=== PATIENT | female | born 1945 | race Caucasian/White ===

== ENCOUNTER 2024-11-20 12:38 | Outpatient (OUT) | payer OTHER, SELFPAY ==
--- NOTE | 2024-11-20 12:49 | MR_ITS ---
[place] [id number] Patient Name: BRIGHT BENITEZ MRN: [id number] date: 1945 Sex: F Assigned Patient Location: MRI Current Patient Location: MRI Accession/Order Number: [id number] Exam Date: 11/20/2024 17:54 Report Date: 11/20/2024 18:01 At the request of: ELODIA BRUNSON MD Procedure: MR knee LT wo con MR knee LT wo con 11/20/2024 2:00 PM SIGNS AND SYMPTOMS: Acute left knee pain PROTOCOL: Multiplanar multisequence MR images of the left knee without IV contrast COMPARISON: None. FINDINGS: Fluid: There is a moderate joint effusion. There is a Melendez's cyst measuring 2.6 x 2.3 x 5.7 cm in greatest dimension.. Medial compartment: Medial meniscus: There is a horizontally oriented tear of the posterior horn through anterior horn of the medial meniscus. No displaced fragments. The meniscus is partially extruded from the joint space. Medial collateral ligament: Intact. Medial femoral condyle cartilage: There is partial thickness chondromalacia. Medial tibial plateau cartilage: There is partial thickness chondromalacia. Lateral compartment: Lateral meniscus: Intact. Lateral collateral ligament: Intact. Lateral femoral condyle cartilage: There is partial thickness chondromalacia. Lateral tibial plateau cartilage: There is partial thickness chondromalacia. Posterolateral corner: Popliteus tendon: Intact. Popliteofibular ligament: Intact. Proximal tibiofibular joint: Preserved. Anterior compartment: Alignment: Normal. Quadriceps tendon: Intact. Patellar tendon: Intact. Retinaculum: Medial intact. Lateral intact. Patellar cartilage: There is full thickness chondromalacia along the lateral articular facet with subchondral edema.. Trochlea: There is full thickness chondromalacia with subchondral edema. . Plica: None. Hoffa fat pad: Normal. Intercondylar compartment: Anterior cruciate ligament: Intact. Posterior cruciate ligament: Intact. Bones (other than subarticular marrow): Normal. Muscles: Normal. Vessels: Normal. Nerves: Normal. MR/MR knee LT wo con IMPRESSION: There is a horizontally oriented tear of the posterior horn through anterior horn of the medial meniscus. No displaced fragments. The meniscus is partially extruded from the joint space. There is partial thickness chondromalacia along the weightbearing joint spaces. There is full thickness chondromalacia greatest along the lateral articular facet of the patella. There is accompanying subchondral edema. There is a horizontally oriented tear of the posterior horn through anterior horn of the medial meniscus. No displaced fragments. The meniscus is partially extruded from the joint space. Impression dictated by: Dereck Rhodes M.D. 11/20/2024 6:01 PM Dictation Location: [place] [address] Electronically authenticated by: [id number] Y Date: 11/20/2024 18:01
== END 2024-11-20 12:39 | disposition home or self-care (01) ==
PROVIDERS: PCP Family Medicine; Visit Provider Orthopaedic Surgery
DX: S83.8X2A Sprain of other specified parts of left knee, initial encounter (principal); S83.242A Other tear of medial meniscus, current injury, left knee, initial encounter; M94.262 Chondromalacia, left knee
CPT/HCPCS: 73721

== ENCOUNTER 2025-02-03 07:52 | Outpatient (OUT) | payer OTHER, SELFPAY ==
--- OUTSIDE RECORDS SUMMARY | 2025-01-21 13:45 | XMS_ITS | Encounter Summary ---
Author Organization [facility] Sys tem Address [id number] [address] [place] [address] Care Team Providers Care Bus Assistant Name Role Phone MarceloBraydon clancy Primary Care Provider + [phone] Reason for Visit * Reason Comments pessary maintenance Patient presents for pessary maintenance. Encounter Details Date Type Department Care Team (Late st Contact Info) Description 01/21/2025 1:45 PM EDT Office Visit [facility] [address] [place] [address] Essence Nunez MD [address] [facility] [place] [address] Female bladder prolapse (Primary Dx); Vaginal odor Social History Tobacco Use Types Packs/Day Years Used Date Smoking Tobacco: Never Smokeless Tobacco: Never Alcohol Use Standard Drinks/Week Comments No 0 (1 standard drink = 0.6 oz pur e alcohol) [facility] Utilities Answer Date Recorded In the past 12 months has [employer], gas, oil, or water [employer] threatened to shut off services in your home? No 05/09/2023 Social Connection and Isolat ion Panel [NHANES] Answer Date Recorded In a typical week, how many times do you talk on the phone with family, friends, or neighbors? Twice a week 08/18/2022 How often do you get togethe r with friends or relatives? More than three times a week 08/18/2022 How often do you attend chur ch or scientologist services? More than 4 times per year 08/18/2022 Do you belong to any clubs o r organizations such as scientology groups, unions, fraternal or athletic groups, or school groups? Yes 08/18/2022 How often do you attend meet ings of the clubs or organizations you belong to? 1 to 4 times per year 08/18/2022 Are you , , di vorced, , never , or living with a partner? 08/18/2022 AUDIT-C Answer Date Recorded Q1: How often do you have a drink containing alcohol? Never 08/18/2022 Q2: How many drinks containi ng alcohol do you have on a typical day when you are drinking? Patient does not drink Q3: How often do you have si x or more drinks on one occasion? Never 08/18/2022 Overall Financial Resource Strain (CARDIA) Answe r Date Recorded How hard is it for you to pa y for the very basics like food, housing, medical care, and heating? Not hard at all 08/18/2022 PHQ-2 Answer Date Recorded Total Score 0 10/04/2024 [facility] - Occupational Stress Questionnaire Answer Date Recorded Do you feel stress - tense, restless, nervous, or anxious, or unable to sleep at night because your mind is troubled all the time - these days? Not at all 08/18/2022 Exercise Vital Sign Answer Date Recorde d On average, how many days pe r week do you engage in moderate to strenuous exercise (like a brisk walk)? 4 days 09/21/2023 On average, how many minutes do you engage in exercise at this level? 60 min 09/21/2023 PRAPARE - Transportation Answer Date Re corded In the past 12 months, has l ack of transportation kept you from medical appointments or from getting medications? No 01/06 In the past 12 months, has l ack of transportation kept you from meetings, work, or from getting things needed for daily living? No 01/19/2022 Housing Instability Answer Date Recorde d Are you worried or concerned that in the next two months you may not have stable housing that you own, rent or stay in as a part of a household? No 09/21/2023 Childcare Answer Date Recorded Do problems getting child ca re make it difficult for you to work or study? No 08/18/2022 Employment Answer Date Recorded Do you need help finding a [facility] career center and/or a training program? No 08/18/2022 Hunger Screening Answer Date Recorded Within the past 12 months we worried whether our food would run out before we got money to buy more. Never True 01/21/2025 Within the past 12 months th e food we bought just didn't last and we didn't have money to get more. Never True 01/21/2025 Purpose - Life Answer Date Recorded I have a purpose and direction in my life. Stron gly Agree 08/18/2022 Comments No Sex and Gender Information Value Date Recorded Sex Assigned at Not on file Legal Sex Female 11:22 AM EDT Gender Identity Not on file Sexual Orientation Not on file documented as of this encounter Last Filed Vital Signs Vital Sign Reading Time Taken Comments Blood Pressure 122/68 01/21/2025 1:45 PM EDT Pulse - - Temperature - - Respiratory Rate - - Oxygen Saturation - - Inhaled Oxygen Concentration - - Weight 85.4 kg (188 lb 3.2 oz) 01/21/2025 1:45 P M EDT Height 165.1 cm (5' 5 ) 01/21/2025 1:45 PM EDT Body Mass Index 31.32 01/21/2025 1:45 PM EDT documented in this encounter Progress Notes * Essence Nunez MD - 01/21/2025 1:45 PM EDT Luma Valderrama is a 79 y.o.female who presents for pessary maintenance. Vaginal odor for the last 2 weeks. No discharge. Does not need medication refills. OB History 4 Para 3 Term 3 AB 1 Living 3 SAB 1 IAB Ectopic Multiple Live Births 3 FAMILY HX Family History Problem Relation Age of Onset No Known Problems Paternal Grandfather No Known Problems Paternal Grandmother No Known Problems Maternal Grandmother No Known Problems Maternal Grandfather Cancer Father prostate No Known Problems Mother Breast cancer Sister 71 No Known Problems Daughter No Known Problems Maternal Aunt No Known Problems Paternal Aunt No Known Problems Cousin BRCA 1/2 Neg Hx Endometrial cancer Neg Hx Ovarian cancer Neg Hx [place] Breast Cancer Neg Hx Colon cancer Neg Hx Uterine cancer Neg Hx Review of Systems A comprehensive review of systems was negative. Physical Exam BP 122/68 Ht 165.1 cm (5' 5 ) Wt 85.4 kg (188 lb 3.2 oz) BMI 31.32 kg/m?? General: alert and oriented x 3 Vulva: External genitalia within normal limits. No HPV, no lesions, no obvious dysplastic changes Vagina: Well supported, no discharge, no lesions Cervix: absent Uterus: absent Adnexa: no mass, fullness, tenderness and removed #3 Doughnut pessary removed, cleaned, inspected and replaced. Patient tolerated procedure. Assessment 1. Female bladder prolapse Plan No orders of the defined types were placed in this encounter. Return to office in 3-6 months for routine maintenance. Continue with Estrace and trimo-russo cream. Culture collected today. Small spotting or bleeding can be expected after pessary replacement. Use Lidocaine cream prior to coming in for maintenance. MD Brigitte LIN 01/21/25 1417 Brigitte Jeffery 01/21/25 1418 documented in this encounter Plan of Treatment Upcoming Encounters Date Type Department Care Team (Late st Contact Info) Description 05/19/2025 2:00 PM EST Office Visit [facility] [address] [place] [address] Essence Nunez MD [address] [place] [place] [address] 10/02/2025 4:00 PM EDT Office Visit [facility] Internal Medicine - Family Medicine [address] [place] [address] documented as of this encounter Goals Goal Patient Goal Type Associated Problems Recent Progress Patient-Stated? Author home with [facility] General Yes Diana Pena LSW Note: Evaluation of progress towards goal: Safe dc return home with otpt therapy documented as of this encounter Results * (ABNORMAL) Unlisted Lab Test (01/21/2025) Swab Vaginal structure / Unknown 01/21/2025 us Essence Nunez MD LAB BLOOD ORDERABLES Final Res ult MANUALLY TRANSCRIBED RESULTS documented in this encounter Visit Diagnoses Diagnosis Female bladder prolapse- Primary Vaginal odor Unspecified symptom associated with female genital organs documented in this encounter Additional Health Concerns Assessment Noted Time PHQ-9 Depression Total Score: 0 10/05/19 25 11:21 AM EDT A Body Mass Index follow-up plan has been documented for the patient 06/27/2016 8:46 PM EST documented as of this encounter Care Teams Bus Assistant Relationship Specialty Start Date End Date Braydon Mendoza DO [address] [facility], [facility] [place] [address] PCP - General Family Medicine 06/09/17 documented as of this encounter
--- OUTSIDE RECORDS SUMMARY | 2025-02-03 07:55 | XMS_ITS | Encounter Summary ---
Author Organization [facility] Address [id number] [address] [place] [address] Care Team Providers Care Equipment Associate Name Role Phone MarceloBraydon clancy Primary Care Provider + [phone] Encounter Details Date Type Department Care Team (Late st Contact Info) Description 01/23/2025 Orders Only [facility] [place] [address] [place] [address] Yamileth Davis, INSTRUMENT REPAIR SUPERVISOR-FACILITIES CLERK [address] [place] [address] BV (bacterial vaginosis) (Primary Dx) Social History Tobacco Use Types Packs/Day Years Used Date Smoking Tobacco: Never Smokeless Tobacco: Never Alcohol Use Standard Drinks/Week Comments No 0 (1 standard drink = 0.6 oz pur e alcohol) [facility] Utilities Answer Date Recorded In the past 12 months has [employer], gas, oil, or water [employer] threatened to shut off services in your [...] 08/18/2022 How often do you attend chur or caodaism services? More than 4 times per year 08/18/2022 Do you belong to any clubs o r organizations such as taoism groups, unions, fraternal or athletic groups, or [...] Answer Date Recorded Total Score 0 10/04/2024 [employer] of Occupat ional [facility] - Occupational Stress Questionnaire Answer Date Recorded [...] Recorded Do you need help finding a [facility] career center and/or a training program? [...] on file documented as of this encounter Plan of Treatment Upcoming Encounters Date Type Department Care Team (Late st Contact Info) Description 05/19/2025 2:00 PM EST Office Visit [facility]ne[facility] [address] [place] [address] Essence Nunez MD [address] [place] [address] 10/02/2025 4:00 PM EDT Office Visit [facility] Internal Medicine - Family Medicine [address] [place] [phone] documented as of this encounter Goals Goal Patient Goal Type Associated Problems Recent Progress Patient-Stated? Author home with [facility] General Yes Diana Pena LSW Note: Evaluation of progress towards goal: Safe dc return home with otpt therapy documented as of this encounter Visit Diagnoses Diagnosis BV (bacterial vaginosis)- Primary Unspecified vaginitis and vulvovaginitis documented in this encounter Additional Health Concerns Assessment Noted Time PHQ-9 Depression Total Score: 0 10/05/19 25 11:21 AM EDT A Body Mass Index follow-up plan has been documented for the patient 06/27/2016 8:46 PM EST documented as of this encounter Care Teams Equipment Associate Relationship Specialty Start Date End Date Braydon Mendoza DO [address] [place], [facility] [place] [address] PCP - General Family Medicine 06/09/17 documented as of this encounter
--- OUTSIDE RECORDS SUMMARY | 2025-02-03 07:55 | XMS_ITS | Encounter Summary ---
Author Organization [facility] Address [id number] [address] [place] [address] Care Team Providers Care Instruction Librarian Name Role Phone MarceloBraydon clancy Primary Care Provider + [phone] Encounter Details Date Type Department Care Team (Late st Contact Info) Description 03/18/2022 [facility] [address] [place] [phone] Mariela Agosto CMA Social History Tobacco Use Types Packs/Day Years Used Date Smoking Tobacco: Never Smokeless Tobacco: Never Alcohol Use Standard Drinks/Week Comments No 0 (1 standard drink = 0.6 oz pur e alcohol) PRAPARE - Transportation Answer Date Re corded In the past 12 months, has l ack of transportation kept you from medical appointments or from getting medications? No 01/06 In the past 12 months, has l ack of transportation kept you from meetings, work, or from getting things needed for daily living? No 01/19/2022 Childcare Answer Date Recorded Childcare Unknown 10/17/2018 Employment Answer Date Recorded Employment Unknown 10/17/2018 Purpose - Life Answer Date Recorded Purpose and direction in life Unknown Comments No Sex and Gender Information Value Date Recorded Sex Assigned at Not on file Legal Sex Female 11:22 AM EDT Gender Identity Not on file Sexual Orientation Not on file COVID-19 Exposure Response Date Recorded In the last month, have you been in contact with someone who was confirmed or suspected to have Coronavirus / COVID-19? No / Unsure 03/08/2022 9:43 AM EDT documented as of this encounter Miscellaneous Notes * Telephone Encounter - Mariela Agosto CMA - 03/18/2022 10:47 AM EST ----- Message from MAN Gonzales sent at 03/14/2022 7:58 AM EST ----- Regarding: medication for cholesterol I spoke with Dr Mendoza, he didn't believe you would qualify for the medication for cholesterol we spoke about but did think you might for another that is injected (we would teach you) every two weeks, called [facility], if you are agreeable, I will get that process started * Telephone Encounter - Mariela Agosto CMA - 03/18/2022 10:47 AM EST Left a message again for the patient to call us back * Telephone Encounter - Mariela Agosto CMA - 03/18/2022 10:47 AM EST Spoke with the patient and she said that she does not want to do the shots. She got a list of foodsthat bring down your lipids and she wants to try that first. documented in this encounter Plan of Treatment Upcoming Encounters Date Type Department Care Team (Late st Contact Info) Description 05/19/2025 2:00 PM EST Office Visit [facility] [address] [place] [address] Essence Nunez MD [address] [place], [place] [id number] 10/02/2025 4:00 PM EDT Office Visit [facility] Internal Medicine - Family Medicine [address] [place] [address] documented as of this encounter Goals Goal Patient Goal Type Associated Problems Recent Progress Patient-Stated? Author home with [facility] General Yes Diana Pena LSW Note: Evaluation of progress towards goal: Safe dc return home with otpt therapy documented as of this encounter Visit Diagnoses Not on filedocumented in this encounter Additional Health Concerns Assessment Noted Time A Body Mass Index follow-up plan has been documented for the patient 06/27/2016 8:46 PM EST documented as of this encounter Care Teams Instruction Librarian Relationship Specialty Start Date End Date Braydon Mendoza DO [address] [facility] [place] [address] PCP - General Family Medicine 06/09/17 documented as of this encounter
--- OUTSIDE RECORDS SUMMARY | 2025-02-03 07:55 | XMS_ITS | Encounter Summary ---
Author Organization [employer] [facility] tem Address [id number] [address] [place] [address] Care Team Providers Care Administrative Personal Assistant Name Role Phone JavierBraydon ruiz Francisco CASTRO Primary Care Provider + [phone] Encounter Details Date Type Department Care Team (Late st Contact Info) Description 01/15/2025 [facility]phone [facility] [address] [place] [phone] Mary Nguyen CMA Social History Tobacco Use Types Packs/Day Years Used Date Smoking Tobacco: Never Smokeless Tobacco: Never Alcohol Use Standard Drinks/Week Comments No 0 (1 standard drink = 0.6 oz pur e alcohol) [facility] Utilities Answer Date Recorded In the past 12 months has [employer], gas, oil, or water company threatened to shut off services in your [...] often do you attend chur ch or holiness services? More than 4 times per year 08/18/2022 Do you belong to any clubs o r organizations such as yazdanism groups, unions, fraternal or athletic groups, or [...] Answer Date Recorded Total Score 0 10/04/2024 [facility] [place] of Occupat ional Health - Occupational Stress [...] Recorded Do you need help finding a l ocal career center and/or a training program? No 08/18/2022 Hunger Screening Answer Date Recorded Within the past 12 months we worried whether our food would run out before we got money to buy more. Never True 10/26/2024 Within the past 12 months th e food we bought just didn't last and we didn't have money to get more. Never True 10/26/2024 Purpose - Life Answer Date Recorded I have a purpose and direction in my life. Rachealn gly Agree 08/18/2022 Comments No Sex and Gender Information Value Date Recorded Sex Assigned at Not on file Legal Sex Female 11:22 AM EDT Gender Identity Not on file Sexual Orientation Not on file documented as of this encounter Miscellaneous Notes * Telephone Encounter - Mary Nguyen CMA - 01/15/2025 3:50 PM EDT I spoke with pt and she stated she is having sharp, shooting pains in her back that are radiating throughout her upper body, so I recommended her to go to the ER if it persisted. I told her Dr. Mendoza is booking out until the end of February. She stated she is going to check with her insurance to see what it will cost for an ER visit. documented in this encounter Plan of Treatment Upcoming Encounters Date Type Department Care Team (Late st Contact Info) Description 05/19/2025 2:00 PM EST Office Visit [facility]ne[facility] [address] [place] [phone] Essence Nunez MD [address] [place] [address] 10/02/2025 4:00 PM EDT Office Visit [facility] Internal Medicine - Family Medicine [address] [place] [phone] documented as of this encounter Goals Goal [...] documented as of this encounter Care Teams Administrative Personal Assistant Relationship Specialty Start Date End Date Braydon Mendoza DO [address] [facility], [place] [address] PCP - General Family Medicine 06/09/17 documented as of this encounter
--- OUTSIDE RECORDS SUMMARY | 2025-02-03 07:55 | XMS_ITS | Encounter Summary ---
Author Organization [facility] Address [id number] [address] [place] [address] Care Team Providers Care Developmental Training Counselor Name Role Phone JavierBraydon ruiz Francisco CASTRO Primary Care Provider + [phone] Encounter Details Date Type Department Care Team (Late st Contact Info) Description 10/29/2023 Orders Only [facility] Internal Medicine - Family Medicine [address] [place] [address] Claudio Rhodes DO [address] [place] [address] History of colonic polyps (Primary Dx) Social History Tobacco Use Types Packs/Day Years Used Date Smoking Tobacco: Never Smokeless Tobacco: Never Alcohol Use Standard Drinks/Week Comments No 0 (1 standard drink = 0.6 oz pur e alcohol) [facility] Utilities Answer Date Recorded In the past 12 months has [employer], gas, oil, or water company threatened to [...] often do you attend chur ch or church services? More than 4 times per year 08/18/2022 Do you belong to any clubs o r organizations such as buddhism groups, unions, fraternal or athletic groups, or [...] PHQ-2 Answer Date Recorded Total Score 0 09/21/2023 [facility] of Occupat ional Health - Occupational Stress [...] Recorded Do you need help finding a [facility] career center and/or a training program? No 08/18/2022 Hunger Screening Answer Date Recorded Within the past 12 months we worried whether our food would run out before we got money to buy more. Never True 10/24/2023 Within the past 12 months th e food we bought just didn't last and we didn't have money to get more. Never True 10/24/2023 Purpose - Life Answer Date Recorded I [...] EST Office Visit [facility] [address] [phone] Essence Nunez MD [address] [address] 10/02/2025 4:00 PM EDT Office Visit [facility] Internal Medicine - Family Medicine [address] [place] [phone] documented as of this encounter Goals Goal Patient Goal Type Associated Problems Recent Progress Patient-Stated? Author home with Diana Marie LSW Note: Evaluation of progress towards goal: Safe dc return home with otpt therapy documented as of this encounter Visit Diagnoses Diagnosis History of colonic polyps- Primary Personal history of colonic polyps documented in this encounter Additional Health Concerns Assessment Noted Time PHQ-9 Depression Total Score: 0 09/21/19 24 3:58 PM EDT A Body Mass Index follow-up plan has been documented for the patient 06/27/2016 8:46 PM EST documented as of this encounter Care Teams Developmental Training Counselor Relationship Specialty Start Date End Date Braydon Mendoza DO [address], [facility] [place] [address] PCP - General Family Medicine 06/09/17 documented as of this encounter
--- OUTSIDE RECORDS SUMMARY | 2025-02-03 07:55 | XMS_ITS | Encounter Summary ---
Author Organization [facility] Address [address] [place] [address], [address] [place] [address] Care Team Providers Care Assembly Machine Set Up Mechanic Name Role Phone Kevin Delacruz MD Primary Care Provider [phone] Encounter Details Date Type Department Care Team (Late st Contact Info) Description 07/22/2015 Post-op Telephone [facility] General Surgery [address] [place], [place] [id number] Terra Richardson, RN Social History Tobacco Use Types Packs/Day Years Used Date Smoking Tobacco: Never Smokeless Tobacco: Never Alcohol Use Standard Drinks/Week Comments No 0 (1 standard drink = 0.6 oz pur e alcohol) Comments Unknown Sex and Gender Information Value Date Recorded Sex Assigned at Not on file Legal Sex Female 1:15 PM EST Gender Identity Not on file Sexual Orientation Not on file documented as of this encounter Plan of Treatment Not on file documented as of this encounter Visit Diagnoses Not on filedocumented in this encounter Care Teams Assembly Machine Set Up Mechanic Relationship Specialty Start Date End Date Kevin Delacruz MD PCP - General Internal Medicine 06/26/15 documented as of this encounter
--- OUTSIDE RECORDS SUMMARY | 2025-02-03 07:55 | XMS_ITS | Encounter Summary ---
Author Organization [employer] Address [id number] [address] [place] [address] Care Team Providers Care Polish Maker Name Role Phone JavierBraydon ruiz Francisco CASTRO Primary Care Provider + [phone] Encounter Details Date Type Department Care Team (Late st Contact Info) Description 07/02/2024 [facility] [address] [place] [phone] Elizabeth Grigsby CMA Social History Tobacco Use Types Packs/Day Years Used Date Smoking Tobacco: Never Smokeless Tobacco: Never Alcohol Use Standard Drinks/Week Comments No 0 (1 standard drink = 0.6 oz pur e alcohol) [facility] Utilities Answer Date Recorded In the past 12 months has [employer] electric, gas, oil, or water company threatened [...] often do you attend chur ch or yazdanism services? More than 4 times per year 08/18/2022 Do you belong to any clubs o r organizations such as methodist groups, unions, fraternal or athletic groups, or [...] PHQ-2 Answer Date Recorded Total Score 0 07/03/2024 [facility] of Occupat ional Health - Occupational Stress [...] got money to buy more. Never True 07/03/2024 Within the past 12 months th e food we bought just didn't last and we didn't have money to get more. Never True 07/03/2024 Purpose - Life Answer Date Recorded I have a purpose and direction in my life. Merrill gly Agree 08/18/2022 Comments No Sex and Gender Information Value Date Recorded Sex Assigned at Not on file Legal Sex Female 11:22 AM EDT Gender Identity Not on file Sexual Orientation Not on file documented as of this encounter Miscellaneous Notes * Telephone Encounter - Elizabeth Grigsby CMA - 07/02/2024 10:18 AM EST Patient called and is still having a lot of head pressure when she tilts her head forward. She is stating that she has sore spots on her head from the fall. No headache at all sine the fall. She wants to come see you but I looked and no availability soon. Do you want to see her and if so where do you want me to put her at? * Telephone Encounter - Braydon Mendoza DO - 07/02/2024 10:18 AM EST Can she come in his afternoon? documented in this encounter Plan of Treatment Upcoming Encounters Date Type Department Care Team (Late st Contact Info) Description 05/19/2025 2:00 PM EST Office Visit [facility] Obstetrics[facility]Gynecology [address] [place] [address] Essence Nunez MD [address] [place], [place] [id number] 10/02/2025 4:00 PM EDT Office Visit [facility] Internal Medicine - Family Medicine [address] [place] [phone] documented as of this encounter Goals Goal [...] documented as of this encounter Care Teams Polish Maker Relationship Specialty Start Date End Date Braydon Mendoza DO [address] [facility], [place] [address] PCP - General Family Medicine 06/09/17 documented as of this encounter
--- OUTSIDE RECORDS SUMMARY | 2025-02-03 07:55 | XMS_ITS | Encounter Summary ---
Author Organization [facility] Address [id number] [address] [place] [address] Care Team Providers Care Gravel Inspector Name Role Phone JavierBraydon ruiz Primary Care Provider + [phone] Encounter Details Date Type Department Care Team (Late st Contact Info) Description 12/16/2024 Orders Only [facility] Internal Medicine - Family Medicine [address] [place] [address] Ref Prov, [place] [address] Social History Tobacco Use Types Packs/Day Years Used Date Smoking Tobacco: Never Smokeless Tobacco: Never Alcohol Use Standard Drinks/Week Comments No 0 (1 standard drink = 0.6 oz pur e alcohol) [facility] Utilities Answer Date Recorded In the past 12 months has e electric, gas, oil, or water company threatened [...] often do you attend chur ch or yazidi services? More than 4 times per year [...] Answer Date Recorded Total Score 0 10/04/2024 [facility] of Occupat ional Health - Occupational Stress [...] Recorded Do you need help finding a [facility] and/or a training program? No [...] Physicians Obstetrics/Gynecology [address] [place] [phone] Essence Nunez MD [address] [place], [place] [id number] 10/02/2025 4:00 PM EDT Office Visit [facility] Internal Medicine - Family Medicine [address] [place] [address] documented as of this encounter Goals Goal Patient Goal Type Associated Problems Recent Progress Patient-Stated? Author home with [facility] Yes Diana Pena LSW Note: Evaluation of progress towards goal: Safe dc return home with otpt therapy documented as of this encounter Procedures Procedure Name Priority Date/Time Associated Diagnosis Comments MR KNEE LT WO CONT Routine 11/20/2024 5:03 PM EDT documented in this encounter Results * MR knee left without contrast (11/20/2024 5:03 PM EDT) Anatomical Region Laterality Modality MSK, Knee, Lower Extremities, Patella, MSK Cover a Left Magnetic Resonance us Not In System Ref Prov IMG MRI ORDERABLES Final Result documented in this encounter Visit Diagnoses Not on filedocumented in this encounter Additional Health Concerns Assessment Noted Time PHQ-9 Depression Total Score: 0 10/05/19 25 11:21 AM EDT A Body Mass Index follow-up plan has been documented for the patient 06/27/2016 8:46 PM EST documented as of this encounter Care Teams Gravel Inspector Relationship Specialty Start Date End Date Braydon Mendoza DO [address] [place] [address] PCP - General Family Medicine 06/09/17 documented as of this encounter
--- OUTSIDE RECORDS SUMMARY | 2025-02-03 07:55 | XMS_ITS | Encounter Summary ---
Author Organization [facility] Address [id number] [address] [place] [address] Care Team Providers Care Beauty Shop Manager Name Role Phone Braydon Mendoza DO Primary Care Provider + [phone] Reason for Visit * Reason Comments Med Refill Encounter Details Date Type Department Care Team (Late st Contact Info) Description 07/29/2022 Refill [facility] Internal Medicine - Family Medicine [address] [place] [address] Braydon Mendoza DO [address], [place] [address] Social History Tobacco Use Types Packs/Day Years [...] EST Office Visit [facility] [address] [facility] [place] [id number] Essence Nunez MD [address] [facility] [address] [place], [place] [id number] 10/02/2025 4:00 PM EDT Office Visit [facility] Internal Medicine - Family Medicine [address] [place] [address] documented as of this encounter Goals Goal [...] documented as of this encounter Care Teams Beauty Shop Manager Relationship Specialty Start Date End Date Braydon Mendoza DO [address] [place] [address] PCP - General Family Medicine 06/09/17 documented as of this encounter
--- OUTSIDE RECORDS SUMMARY | 2025-02-03 07:55 | XMS_ITS | Encounter Summary ---
Author Organization [facility] Address [id number] [address] [place] [address] Care Team Providers Care Custody Assistant Name Role Phone MarceloBraydon clancy Primary Care Provider + [phone] Encounter Details Date Type Department Care Team (Late st Contact Info) Description 01/23/2025 Results Follow-Up [facility] Obstetrics[facility]Gynecology [address] [facility] [address] Yamileth Davis, SNACK BAR COOK-SENIOR FRONT END ENGINEER [address] [place], [place] [id number] Unlisted Lab Test Social History Tobacco Use Types Packs/Day Years Used Date Smoking Tobacco: Never Smokeless Tobacco: Never Alcohol Use Standard Drinks/Week Comments No 0 (1 standard drink = 0.6 oz pur e alcohol) [facility] Utilities Answer Date Recorded In the past 12 months has [employer], gas, oil, or water company threatened to [...] often do you attend chur ch or sabianist services? More than 4 times per year 08/18/2022 Do you belong to any clubs o r organizations such as religion groups, unions, fraternal or athletic groups, or [...] Answer Date Recorded Total Score 0 10/04/2024 [facility] of Occupat ional Health - Occupational [...] Recorded Do you need help finding a [facility] career center and/or a training program? No [...] EST Office Visit [facility] [address] [facility] [facility] [place] [phone] Essence Nunez MD [address] [facility] [address] [place], [place] [id number] 10/02/2025 4:00 PM EDT Office Visit [facility] Internal Medicine - Family Medicine [address] [place] [address] documented as of this encounter Goals Goal Patient Goal Type Associated Problems Recent Progress Patient-Stated? Author home with [facility] Yes Diana Pena LSW Note: Evaluation of [...] documented as of this encounter Care Teams Custody Assistant Relationship Specialty Start Date End Date Braydon Mendoza DO [address], [facility] [place] [address] PCP - General Family Medicine 06/09/17 documented as of this encounter
--- OUTSIDE RECORDS SUMMARY | 2025-02-03 07:55 | XMS_ITS | Encounter Summary ---
Author Organization [employer] Address [id number] [address] [place] [address] Care Team Providers Care Disc Sander Name Role Phone MarceloBraydon clancy Primary Care Provider + [phone] Encounter Details Date Type Department Care Team (Latest Contact Info) Description 01/21/2025 Travel Social History Tobacco Use Types Packs/Day Years Used Date Smoking Tobacco: Never Smokeless Tobacco: Never Alcohol Use Standard Drinks/Week Comments No 0 (1 standard drink = 0.6 oz pur e alcohol) [facility] Utilities Answer Date Recorded In the past 12 months has [employer] electric, gas, oil, or water company threatened [...] How often do you attend chur or lutheran services? More than 4 times per year 08/18/2022 Do you belong to any clubs o r organizations such as muslim groups, unions, fraternal or athletic groups, or [...] you are drinking? Patient does not drink 3 Q3: How often do you have si x or more drinks on one occasion? Never 08/18/2022 Overall Financial Resource Strain (CARDIA) Answe r Date Recorded How hard is it for you to pa y for the very basics like food, housing, medical care, and heating? Not hard at all 08/18/2022 PHQ-2 Answer Date Recorded Total Score 0 10/04/2024 [facility] of Occupat ional Health - Occupational Stress [...] Recorded Do you need help finding a [facility] career [facility] and/or a training program? [...] EST Office Visit [facility]ne[facility] [address] [facility] [place] [phone] Essence Nunez MD [address] [facility] [place] [address] 10/02/2025 4:00 PM EDT Office Visit [facility] Internal Medicine - Family Medicine [address] [place] [address] documented as of this encounter Goals Goal [...] documented as of this encounter Care Teams Disc Sander Relationship Specialty Start Date End Date Braydon Mendoza DO [address], [facility] [place] [address] PCP - General Family Medicine 06/09/17 documented as of this encounter
--- OUTSIDE RECORDS SUMMARY | 2025-02-03 07:55 | XMS_ITS | Encounter Summary ---
Author Organization [employer] Address [facility] [id number] [address] [place] [address] Care Team Providers Care Quality Auditor Name Role Phone MarceloBraydon clancy Primary Care Provider + [phone] Encounter Details Date Type Department Care Team (Late st Contact Info) Description 03/15/2022 [facility]phone [facility] Medicine [address] [place] [phone] Mariela Agosto CMA Social History Tobacco Use [...] Telephone Encounter - Mariela Agosto CMA - 03/15/2022 9:51 AM EST ----- Message from MAN Gonzales [...] agreeable, I will get that process started documented in this encounter Plan of Treatment Upcoming Encounters Date Type Department Care Team (Late st Contact Info) Description 05/19/2025 2:00 PM EST Office Visit [facility] Ob[facility]Gyne[facility] [address] [facility] [place] [phone] Essence Nunez MD [address] [facility] [place] [address] 10/02/2025 4:00 PM EDT Office Visit [facility] Internal Medicine - Family Medicine [address] [place] [phone] documented as of this encounter Goals Goal Patient Goal Type Associated Problems Recent Progress Patient-Stated? [facility]or LSW Note: Evaluation of progress towards goal: Safe dc return home with otpt therapy documented as of this encounter Visit Diagnoses Not on filedocumented in this encounter Additional Health Concerns Assessment Noted Time A Body Mass Index follow-up plan has been documented for the patient 06/27/2016 8:46 PM EST documented as of this encounter Care Teams Quality Auditor Relationship Specialty Start Date End Date Braydon Mendoza DO [address] [facility] [place] [address] PCP - General Family Medicine 06/09/17 documented as of this encounter
--- OUTSIDE RECORDS SUMMARY | 2025-02-03 07:55 | XMS_ITS | Clinical Summary ---
Author Organization [employer] Address [id number] [address] [place] [address] Care Team Providers Care Owner/Photographer Name Role Phone JavierBraydon ruiz Primary Care Provider [phone] Allergies Active Allergy Reactions Criticality Noted Date Comments Carbamazepine Rash Low 06/27/2016 Medications multivitamin (THERAGRAN) tablet Take 1 tablet by mouth in the morning. Active magnesium oxide 250 mg tablet Active estradioL (ESTRACE) 0.01 % (0.1 mg/gram) vaginal cream Insert 1 g into the vagina in the morning. 42.5 g 1 5 Active calcium citrate-vitami n D2 250 mg-2.5 mcg (100 unit) per tablet Take 1 tablet by mouth in the morning. Active lisinopril-hyd roCHLOROthiazi de (PRINZIDE,ZEST ORETIC) 20-25 mg per tablet TAKE 1 TABLET BY MOUTH IN THE MORNING 90 tablet 5 Active amoxicillin (AMOXIL) 500 mg capsule TAKE 4 CAPSULES BY MOUTH ONE HOUR PRIOR TO DENTAL APPOINTMENT. 5 Active zinc acetate 50 mg (zinc) capsule Take 1 capsule by mouth in the morning. 025 Discontinued selenium 200 mcg capsule Take 1 capsule (200 mcg total) by mouth in the morning. 025 Discontinued vitamin E 400 units capsule Take 1 capsule (400 Units total) by mouth in the morning. 025 Discontinued ibuprofen (MOTRIN) 600 mg tablet Take 1 tablet (600 mg total) by mouth every 6 (six) hours as needed for pain. 30 tablet 5 025 Discontinued metroNIDAZOLE (FLAGYL) 500 mg tabletIndicati ons:BV (bacterial vaginosis) Take 1 tablet (500 mg total) by mouth in the morning and 1 tablet (500 mg total) before bedtime. Do all this for 7 days. 14 tablet 5 025 Active Problems Problem Noted Date Diagnosed Date Female bladder prolapse 11/14/2023 Stress incontinence due to pelvic organ prolapse 11/14/2023 Polyp of transverse colon 11/10/2023 Colon cancer screening 10/29/2023 Hypertensive kidney disease with stage 3b chronic kidney disease 05/09/2023 Restless legs syndrome 12/07/2022 Primary localized osteoarthritis of pelvic regio n and thigh 12/07/2022 Presence of right artificial hip joint Lumbago with sciatica, right side 12/07/2022 Lesion of left plantar nerve 12/07/2022 History of right hip replacement 12/07/2022 Herniation of intervertebral disc between L5 and S1 12/07/2022 Hallux valgus (acquired), left foot 12/07/2022 Generalized osteoarthritis 12/07/2022 DDD (degenerative disc disease), lumbar 12/08/19 Chronic allergic rhinitis 12/07/2022 Cholelithiasis 12/07/2022 Bilateral swelling of feet 12/07/2022 Arthritis, lumbar spine 12/07/2022 Chronic kidney disease, stage 3b 03/08/2022 Arthritis of right hip 01/19/2022 Edema of lower extremity 07/01/2021 Vitamin D deficiency 12/02/2020 Essential hypertension 12/14/2018 Abnormal renal function 09/07/2018 Hyperglycemia 09/07/2018 Mixed hyperlipidemia 09/07/2018 Hammertoe of left foot 08/22/2017 History of colonic polyps 08/22/2017 Obesity 07/02/2017 Arthritis 05/22/2017 Encounters Date Type Department Care Team Description 01/23/2025 Results Follow-Up [facility] [address] [place] [phone] Yamileth Davis, INSPECTOR ALIGNING-SWIM COACH Unlisted Lab Test 01/23/2025 Orders Only [facility] [address] [place] [address] Yamileth Davis, INSPECTOR ALIGNING-SWIM COACH BV (bacterial vaginosis) (Primary Dx) 01/23/2025 Orders Only [facility] [address] [place] [phone] Shirin Dougherty RN Vaginal odor 01/21/2025 1:45 PM EDT Office [facility] [address] [place] [phone] Essence Nunez MD Female bladder prolapse (Primary Dx); Vaginal odor 01/21/2025 Travel 01/15/2025 Telephone [facility] Internal Medicine - Family Medicine [address] [place] [address] Mary Nguyen CMA 12/18/2024 Refill [facility] Internal Medicine - Family Medicine [address] [place] [phone] Braydon Mendoza DO 12/16/2024 Orders Only [facility] Internal Medicine - Family Medicine [address] [place] [phone] Ref Prov, Not In System from Last 3 Months Immunizations No known immunizations Family History Medical History Relation Name Comments No Known Problems Cousin No Known Problems Daughter Cancer Father prostate No Known Problems Maternal Aunt No Known Problems Maternal Grandfather No Known Problems Maternal Grandmother No Known Problems Mother No Known Problems Paternal Aunt No Known Problems Paternal Grandfather No Known Problems Paternal Grandmother Breast cancer Sister BRCA 1/2 Neg Hx [place] Breast Cancer Neg Hx Colon cancer Neg Hx Endometrial cancer Neg Hx Ovarian cancer Neg Hx Uterine cancer Neg Hx Relation Name Status Comments Cousin Daughter Father Maternal Aunt Maternal Grandfather Maternal Grandmother Mother Paternal Aunt Paternal Grandfather Paternal Grandmother Sister Social History Tobacco Use Types Packs/Day Years Used Date Smoking Tobacco: Never Smokeless Tobacco: Never Tobacco Cessation:Counseling Given: Not Answered Alcohol Use Standard Drinks/Week Comments No 0 (1 standard drink = 0.6 oz pur e alcohol) [facility] Utilities Answer Date Recorded In the past 12 months has e [employer], gas, oil, or water company threatened to [...] How often do you attend chur or moravian services? More than 4 times per year 08/18/2022 Do you belong to any clubs o r organizations such as latter-day groups, unions, fraternal or athletic groups, or [...] Answer Date Recorded Total Score 0 10/04/2024 [facility] Occupat ional Health - Occupational [...] Recorded Do you need help finding a [facility] and/or a training program? [...] on file Sexual Orientation Not on file Last Filed Vital Signs Vital Sign Reading Time Taken Comments Blood Pressure 122/68 01/21/2025 1:45 PM EDT Pulse 73 10/26/2024 12:52 PM EDT Temperature 36.8 C (98.2 F) 10/26/2024 12:52 PM EDT Respiratory Rate 20 10/26/2024 12:52 PM EDT Oxygen Saturation 98% 10/26/2024 12:52 PM EDT Inhaled Oxygen Concentration - - Weight 85.4 kg (188 lb 3.2 oz) 01/21/2025 1:45 P M EDT Height 165.1 cm (5' 5 ) 01/21/2025 1:45 PM EDT Body Mass Index 31.32 01/21/2025 1:45 PM EDT Plan of Treatment Upcoming Encounters Date Type Department Care Team (Late st Contact Info) Description 05/19/2025 2:00 PM EST Office Visit [facility] [address] [place] [phone] Essence Nunez MD [address] [place], [place] [id number] 10/02/2025 4:00 PM EDT Office Visit [facility] Internal Medicine - Family Medicine [address] [place] [phone] Health Maintenance Due Date Last Done Comments DTaP,Tdap and Td Vaccines (1 - Tdap) 07/29/1966 Zoster (Shingles) Vaccine (1 of 2) 07/29/1997 Influenza Vaccine 01/06/2025 Medicare Annual Wellness Visit 10/01/2025 0 10/01/2024, 09/21/2023, 08/18/2022 Depression Screening 10/04/2025 10/04/2024 Fall Risk Screening 10/04/2025 10/04/2024 Tobacco Screening 01/21/2026 01/21/2025 COVID-19 Vaccine Discontinued 10/15/2021, , 10/23/2020, Additional history exists Colonoscopy Discontinued 11/10/2023, 11/10/2023 Goals Goal Patient Goal Type Associated Problems Recent Progress Patient-Stated? Author home with [facility] Yes Diana Pena LSW Note: Evaluation of progress towards goal: Safe dc return home with otpt therapy Medical Devices Implanted Type Area Lead Security Officer Device Identifier Shelf Expiration Date Model / Serial / Lot Cup Actb 52mm Pncl Sect Hip - [id number] - [id number] Implanted:Qt y: 1 on 01/19/2022 by Radames Cat DO at [facility] Orthopedic Implant Right: Hip [employer] [id number] 11/19/2031 [id number] / [id number] / [id number] Liner Actb 52mm 36mm Altrx Hip - [id number] - [id number] Implanted:Qt y: 1 on 01/19/2022 by Radames Cat DO at [facility] Orthopedic Implant Right: Hip [employer] [id number] 08/19/2026 [id number] / [id number] / [id number] Stem Fem Corail Amt Collar Size 11 - [id number] - [id number] Implanted:Qt y: 1 on 01/19/2022 by Radames Cat DO at [facility] Orthopedic Implant Right: Hip [employer] [id number] 07/20/2031 [id number] / [id number] / Head Fem 36mm +1.5mm 04/20 - [id number] - [id number] Implanted:Qt y: 1 on 01/19/2022 by Radames Cat DO at [facility] Orthopedic Implant Right: Hip [employer] [id number] 08/19/2026 [id number] / [id number] / [id number] Implant Hip Mop All Sz Construct Rpl 91612 - Sna - [id number] Implanted:Qt y: 1 on 01/19/2022 by Radames Cat DO at [facility] Orthopedic Implant Right: Hip [employer] [id number] / [id number] / NA Elminator Hl Drlc Pncl Hip Mrthn - [id number] - [id number] Implanted:Qt y: 1 on 01/19/2022 by Radames Cat DO at [facility] Other Implant Right: Hip [employer] [id number] 10/20/2031 [id number] / [id number] / [id number] Screw Hip Canc Cnn Gription 25mm - [id number] - [id number] Implanted:Qt y: 1 on 01/19/2022 by Radames Cat DO at [facility] Screw Right: Hip [employer] [id number] 09/19/2031 [id number] / [id number] / [id number] Screw Hip Canc Cnn Gription 15mm - [id number] - [id number] Implanted:Qt y: 1 on 01/19/2022 by Radames Cat DO at [facility] Screw Right: Hip [employer] [id number] 07/20/2031 [id number] / [id number] / [id number] Procedures Procedure Name Priority Date/Time Associated Diagnosis Comments UNLISTED LAB TEST Routine 01/21/2025 Vaginal odor MR KNEE LT WO CONT Routine 11/20/2024 5: 03 PM EDT PROVATION COLONOSCOPY Routine 11/10/2023 12:23 PM EDT from Last 3 Months or Most Recently Relevant to Health Maintenance Results * (ABNORMAL) Unlisted Lab Test (01/21/2025) Swab Vaginal structure / Unknown 01/21/2025 us Esesnce Nunez MD LAB BLOOD ORDERABLES Final Res ult MANUALLY TRANSCRIBED RESULTS * MR knee left without contrast (11/20/2024 5:03 PM EDT) Anatomical Region Laterality Modality MSK, Knee, Lower Extremities, Patella, MSK Cover a Left Magnetic Resonance us Not In System Ref Prov IMG MRI ORDERABLES Final Result * Colonoscopy Report (11/10/2023 12:23 PM EDT) Narrative SYSTEMGENERATED, DOCUMENTATION - 11/10/2023 12:23 PM EDT This order has been auto-finalized for image and report archival in PACs. *For full report details, please reach out to your physician. This image is visible to you in MyChart.* us Claudio Rhodes DO IMG OR IMG ORDERABLES Final Resu lt from Last 3 Months or Most Recently Relevant to Health Maintenance Insurance [employer] MEDICARE WORKERS COMPENSATION Advance Directives * Full Code (Latest Code Status on File) Date Activated Date Inactivated Comments 01/19/2022 7:40 AM 01/20/2022 7:05 PM Care Teams Owner/Photographer Relationship Specialty Start Date End Date Braydon Mendoza DO [address] [place] [address] PCP - General Family Medicine 06/09/17
--- OUTSIDE RECORDS SUMMARY | 2025-02-03 07:55 | XMS_ITS | Clinical Summary ---
Author Organization [facility] Address [address] [place] [address], [address] [place] [address] Care Team Providers Care Senior Stock Plan Administrator Name Role Phone Kevin Delacruz MD Primary Care Provider Allergies No known active allergies Medications b complex vitamins capsule Take 1 capsule by mouth daily Active Calcium Carb-Cholecalci ferol (CALCIUM + D3) 600-200 MG-UNIT TABS Take by mouth 2 times daily Active vitamin E 400 UNIT capsule Take by mouth daily 800 IU Active Cinnamon 500 MG CAPS Take by mouth daily Active rOPINIRole (REQUIP) 0.25 MG tablet Take 0.25 mg by mouth nightly Active hydrochlorothia zide (MICROZIDE) 12.5 MG capsule Take 12.5 mg by mouth as needed Active ergocalciferol (ERGOCALCIFEROL ) 92725 UNITS capsule Take 50,000 Units by mouth Twice a Week Active magnesium (MAGNESIUM-OXID E) 250 MG TABS tablet Take 250 mg by mouth daily Active zinc 50 MG CAPS Take by mouth daily Active Selenium 200 MCG CAPS Take by mouth daily Active Multiple Vitamins-Minera ls (CENTRUM SILVER ADULT 50+ PO) Take by mouth Active Multiple Vitamins-Minera ls-FA (OCUVEL PO) Take by mouth Active Coenzyme Q10 (CO Q-10) 200 MG CAPS Take by mouth daily Active Ginkgo Biloba 40 MG TABS Take by mouth daily Active Active Problems No known active problems Family History Medical History Relation Name Comments Cancer Father Hypertension Mother Other Mother lung disease Relation Name Status Comments Father Mother Social History Tobacco Use Types Packs/Day Years [...] Sign Reading Time Taken Comments Blood Pressure 155/91 08/17/2015 3:59 PM EDT Pulse 73 08/17/2015 3:59 PM EDT Temperature 36.7 C (98 F) 08/17/2015 3:59 PM EDT Respiratory Rate 20 08/17/2015 3:59 PM EDT Oxygen Saturation 96% 07/21/2015 3:02 PM EDT Inhaled Oxygen Concentration - - Weight 83.9 kg (185 lb) 08/17/2015 3:59 PM EDT Height 167.6 cm (5' 6 ) 08/17/2015 3:59 PM EDT Body Mass Index 29.86 08/17/2015 3:59 PM EDT Plan of Treatment Not on file Insurance [employer] MEDICARE Care Teams Senior Stock Plan Administrator Relationship Specialty Start Date End Date Kevin Delacruz MD PCP - General Internal Medicine 06/26/15
--- OUTSIDE RECORDS SUMMARY | 2025-02-03 07:55 | XMS_ITS | Encounter Summary ---
Author Organization [facility] Address [address] [place] [address] Care Team Providers Care Manager Cost Name Role Phone Braydon Mendoza MD Primary Care Provider + [phone] Braydon Mendoza MD Primary Care Provider + [phone] Encounter Details Date Type Department Care Team (Late st Contact Info) Description 12/07/2022 [facility] [address] [place] [place] [address] Marv Lopez, PHONE TRIAGE SPECIALIST [address] [place] [address] Social History Tobacco Use Types Packs/Day Years Used Date Smoking Tobacco: Never Alcohol Use Standard Drinks/Week Comments Not Currently 0 (1 standard drink = 0.6 oz pur e alcohol) Comments Unknown Sex and Gender Information Value Date Recorded Sex Assigned at Not on file Legal Sex Female 7:05 PM EDT Gender Identity Not on file Sexual Orientation Not on file documented as of this encounter Plan of Treatment Upcoming Encounters Date Type Department Care Team (Late Contact Info) Description 12/01/2025 10:15 AM EDT Office Visit [facility] [address] [address] Marv Lopez, PHONE TRIAGE SPECIALIST [address] [place] [address] documented as of this encounter Visit Diagnoses Not on filedocumented in this encounter Care Teams Manager Cost Relationship Specialty Start Date End Date Braydon Mendoza MD PCP - General Family Medicine 10/17/22 12/01/24 Braydon Mendoza MD [address] [facility] [place] [address] PCP - General Family Medicine 12/02/24 documented as of this encounter
--- OUTSIDE RECORDS SUMMARY | 2025-02-03 07:55 | XMS_ITS | Encounter Summary ---
Author Organization [employer] Address [facility]-[id number] [address] [place] [address] Care Team Providers Care Salesperson Handbags Name Role Phone MarceloBraydon clancy Primary Care Provider + [phone] Encounter Details Date Type Department Care Team (Late st Contact Info) Description 01/23/2025 Orders Only [facility] [address] [facility] [address] [place] [address] Shirin Dougherty RN Vaginal odor Social History Tobacco Use Types Packs/Day Years Used Date Smoking Tobacco: Never Smokeless Tobacco: Never Alcohol Use Standard Drinks/Week Comments No 0 (1 standard drink = 0.6 oz pur e alcohol) [facility] Utilities Answer Date Recorded In the [...] often do you attend chur ch or worship services? More than 4 times per year 08/18/2022 Do you belong to any clubs o r organizations such as catholic groups, unions, fraternal or athletic groups, or [...] Answer Date Recorded Total Score 0 10/04/2024 [facility] Occupat ional Health - [...] [facility] [address] [address] [place] [phone] Essence Nunez MD [address] [facility] [address] [facility] [address] [place] [address] 10/02/2025 4:00 PM EDT Office Visit [facility] Internal Medicine - Family Medicine [address] [place] [address] documented as of this encounter Goals Goal Patient Goal Type Associated Problems Recent Progress Patient-Stated? Author home with [facility] Yes Diana Pena LSW Note: Evaluation of progress towards goal: Safe dc return home with otpt therapy documented as of this encounter Procedures Procedure Name Priority Date/Time Associated Diagnosis Comments UNLISTED LAB TEST Routine 01/21/2025 Vaginal odor documented in this encounter Results * (ABNORMAL) Unlisted Lab Test (01/21/2025) Swab Vaginal structure / Unknown 01/21/2025 us Essence Nunez MD LAB BLOOD ORDERABLES Final Res ult MANUALLY TRANSCRIBED RESULTS documented in this encounter Visit Diagnoses Diagnosis Vaginal odor Unspecified symptom associated with female genital organs documented in this encounter Additional Health Concerns Assessment Noted Time PHQ-9 Depression Total Score: 0 10/05/19 25 11:21 AM EDT A Body Mass Index follow-up plan has been documented for the patient 06/27/2016 8:46 PM EST documented as of this encounter Care Teams Salesperson Handbags Relationship Specialty Start Date End Date Braydon Mendoza DO [address] [place] [address] PCP - General Family Medicine 06/09/17 documented as of this encounter
--- OUTSIDE RECORDS SUMMARY | 2025-02-03 07:55 | XMS_ITS | Encounter Summary ---
Author Organization [employer] Address [id number] [address] [place] [address] Care Team Providers Care Nib Assembler Name Role Phone RejiBraydon Francisco CASTRO Primary Care Provider + [phone] Encounter Details Date Type Department Care Team (Late st Contact Info) Description 11/17/2023 [facility] [address] [place] [phone] Imani Sherwood CMA Social History Tobacco Use Types Packs/Day Years Used Date Smoking Tobacco: Never Smokeless Tobacco: Never Alcohol Use Standard Drinks/Week Comments No 0 (1 standard drink = 0.6 oz pur e alcohol) [facility] Utilities Answer Date Recorded In the past 12 months has [employer], gas, oil, or water company threatened [...] often do you attend chur ch or baptist services? More than 4 times per year 08/18/2022 Do you belong to any clubs o r organizations such as religious groups, unions, fraternal or athletic groups, or [...] Answer Date Recorded Total Score 0 09/21/2023 [facility] [place] of Occupat ional Health - Occupational Stress [...] got money to buy more. Never True 11/14/2023 Within the past 12 months th e food we bought just didn't last and we didn't have money to get more. Never True 11/14/2023 Purpose - Life Answer Date Recorded I have a purpose and direction in my life. Stron gly Agree 08/18/2022 Comments No Sex and Gender Information Value Date Recorded Sex Assigned at Not on file Legal Sex Female 11:22 AM EDT Gender Identity Not on file Sexual Orientation Not on file documented as of this encounter Miscellaneous Notes * Telephone Encounter - Imani Sherwood CMA - 11/17/2023 11:12 AM EDT called left vm to cb ----- Message ----- From: Claudio Rhodes DO Sent: 11/14/2023 To: Luma Valderrama Subject: Unread Message Notification Your colon biopsy report shows a serrated adenoma. This is an abnormal polyp, but not fully cancerous. We recommend a recheck colonoscopy in 3 years. * Telephone Encounter - Imani Sherwood CMA - 11/17/2023 11:12 AM EDT Called pt read your note she understood documented in this encounter Plan of Treatment Upcoming Encounters Date Type Department Care Team (Late st Contact Info) Description 05/19/2025 2:00 PM EST Office Visit [facility] [address] [place] [address] Essence Nunez MD [address] [place], [place] [phone] 10/02/2025 4:00 PM EDT Office Visit [facility] Internal Medicine - Family Medicine [address] [place] [address] documented as of this encounter Goals Goal Patient Goal Type Associated Problems Recent Progress Patient-Stated? Author home with [facility] Yes Jean, Diana, ASTRONOMY TEACHER Note: Evaluation of progress towards goal: Safe [...] documented as of this encounter Care Teams Nib Assembler Relationship Specialty Start Date End Date Braydon Mendoza DO [address] [facility], [place] [address] PCP - General Family Medicine 06/09/17 documented as of this encounter
--- OUTSIDE RECORDS SUMMARY | 2025-02-03 07:55 | XMS_ITS | Encounter Summary ---
Author Organization [employer] Address [facility]-[id number] [address] [place] [address] Care Team Providers Care Protection Engineer Name Role Phone JavierBraydon ruiz Francisco CASTRO Primary Care Provider + [phone] Encounter Details Date Type Department Care Team (Late st Contact Info) Description 10/10/2023 [facility] [address] [place] [phone] Kasie Cordon CMA Social History Tobacco Use Types Packs/Day Years Used Date Smoking Tobacco: Never Smokeless Tobacco: Never Alcohol Use Standard Drinks/Week Comments No 0 (1 standard drink = 0.6 oz pur e alcohol) [facility] Utilities Answer Date Recorded In the past 12 months has [employer], gas, oil, or water company threatened [...] often do you attend chur ch or pentecostal services? More than 4 times per year 08/18/2022 Do you belong to any clubs o r organizations such as confucianist groups, unions, fraternal or athletic groups, or [...] Answer Date Recorded Total Score 0 09/21/2023 [facility] [place] of Occupat ional Health - Occupational Stress [...] got money to buy more. Never True 09/21/2023 Within the past 12 months th e food we bought just didn't last and we didn't have money to get more. Never True 09/21/2023 Purpose - Life Answer Date Recorded I have a purpose and direction in my life. Stron gly Agree 08/18/2022 Comments No Sex and Gender Information Value Date Recorded Sex Assigned at Not on file Legal Sex Female 11:22 AM EDT Gender Identity Not on file Sexual Orientation Not on file documented as of this encounter Miscellaneous Notes * Telephone Encounter - Kasie Codron CMA - 10/10/2023 10:27 AM EDT I called pt and got her scheduled for a Colonoscopy November 09 at 1:30. She is a [employer] pt.She would like the SUTABS Her pharmacy is [facility]. * Telephone Encounter - Claudio Rhodes DO - 10/10/2023 10:27 AM EDT Message noted. H&P done. Rx Golytely sent to pharmacy. Has CKD, unsafe to use Sutab documented in this encounter Plan of Treatment Upcoming Encounters Date Type Department Care Team (Late st Contact Info) Description 05/19/2025 2:00 PM EST Office Visit [facility] [address] [place] [address] Essence Nunez MD [address] [place], [place] [id number] 10/02/2025 4:00 PM EDT Office Visit [facility] Internal Medicine - Family Medicine [address] [place] [address] documented as of this encounter [...] documented as of this encounter Care Teams Protection Engineer Relationship Specialty Start Date End Date Braydon Mendoza DO [address] [facility] [place] [address] PCP - General Family Medicine 06/09/17 documented as of this encounter
--- OUTSIDE RECORDS SUMMARY | 2025-02-03 07:56 | XMS_ITS | Encounter Summary ---
Author Organization [employer] s tem Address [id number] [address] [place] [address] Care Team Providers Care Supervisor Estimator And Drafter Name Role Phone JavierBraydon ruiz Francisco CATSRO Primary Care Provider + [phone] Encounter Details Date Type Department Care Team (Late st Contact Info) Description 09/06/2023 Telephone [facility] - Family Medicine [address] [place] [phone] Kasie Cordon CMA Social History Tobacco Use Types Packs/Day Years Used Date Smoking Tobacco: Never Smokeless Tobacco: Never Alcohol Use Standard Drinks/Week Comments No 0 (1 standard drink = 0.6 oz pur e alcohol) [facility] Utilities Answer Date Recorded In the past 12 months has [employer] electric, gas, oil, or water company threatened [...] often do you attend chur ch or catholic services? More than 4 times per year 08/18/2022 Do you belong to any clubs o r organizations such as episcopalian groups, unions, fraternal or athletic groups, or [...] PHQ-2 Answer Date Recorded Total Score 0 07/14/2023 [facility] [place] of Occupat ional Health - Occupational Stress [...] to strenuous exercise (like a brisk walk)? 2 days 08/18/2022 On average, how many minutes do you engage in exercise at this level? 50 min 08/18/2022 PRAPARE - Transportation Answer Date Re corded In the past 12 months, has l ack of transportation kept you from medical appointments or from getting medications? No 01/06 In the past 12 months, has l ack of transportation kept you from meetings, work, or from getting things needed for daily living? No 01/19/2022 Childcare Answer Date Recorded Do problems getting child ca re make it difficult for you to work or study? No 08/18/2022 Employment Answer Date Recorded Do you need help finding a l al career center and/or a training program? No 08/18/2022 Hunger Screening Answer Date Recorded Within the past 12 months we worried whether our food would run out before we got money to buy more. Never True 07/14/2023 Within the past 12 months th e food we bought just didn't last and we didn't have money to get more. Never True 07/14/2023 Purpose - Life Answer Date Recorded I have a purpose and direction in my life. Stron gly Agree 08/18/2022 Comments No Sex and Gender Information Value Date Recorded Sex Assigned at Not on file Legal Sex Female 11:22 AM EDT Gender Identity Not on file Sexual Orientation Not on file documented as of this encounter Miscellaneous Notes * Telephone Encounter - Kasie Cordon CMA - 09/06/2023 9:11 AM EDT Pt called and states John Osman is the urologist insurance said they would cover phone number. [phone]. Fax number to send the referral is [phone] documented in this encounter Plan of Treatment Upcoming Encounters Date Type Department Care Team (Late st Contact Info) Description 05/19/2025 2:00 PM EST Office Visit [facility] Obstetrics[facility]necology [address] [place] [phone] Essence Nunez MD [address] [place] [address] 10/02/2025 4:00 PM EDT Office Visit [facility] Internal Medicine - Family Medicine [address] [place] [phone] documented as of this encounter Goals Goal Patient Goal Type Associated Problems Recent Progress Patient-Stated? Author home with [facility] General Yes Diana Pena LSW Note: Evaluation of progress towards goal: Safe dc return home with otpt therapy documented as of this encounter Visit Diagnoses Not on filedocumented in this encounter Additional Health Concerns Assessment Noted Time PHQ-9 Depression Total Score: 0 07/14/19 24 11:40 AM EST A Body Mass Index follow-up plan has been documented for the patient 06/27/2016 8:46 PM EST documented as of this encounter Care Teams Supervisor Estimator And Drafter Relationship Specialty Start Date End Date Braydon Mendoza DO [address], [facility] [place] [address] PCP - General Family Medicine 06/09/17 documented as of this encounter
--- OUTSIDE RECORDS SUMMARY | 2025-02-03 07:56 | XMS_ITS | Encounter Summary ---
Author Organization [employer] s tem Address [id number] [address] [place] [address] Care Team Providers Care Yard Assistant Name Role Phone RejiBraydon Francisco CASTRO Primary Care Provider + [phone] Encounter Details Date Type Department Care Team (Late st Contact Info) Description 10/04/2023 Telephone [facility] Internal Medicine - Family Medicine [address] [place] [phone] Imani Sherwood CMA Social History Tobacco Use Types Packs/Day Years Used Date Smoking Tobacco: Never Smokeless Tobacco: Never Alcohol Use Standard Drinks/Week Comments No 0 (1 standard drink = 0.6 oz pur e alcohol) [facility] Utilities Answer Date Recorded In the past 12 months has [employer] electric, gas, oil, or water company threatened [...] often do you attend chur ch or roman catholic services? More than 4 times per year 08/18/2022 Do you belong to any clubs o r organizations such as gnosticism groups, unions, fraternal or athletic groups, or [...] Answer Date Recorded Total Score 0 09/21/2023 [facility] [place] of Occupat ional Health - Occupational Stress [...] Telephone Encounter - Imani Sherwood CMA - 10/04/2023 4:43 PM EDT Pt called requesting 2 referrals 1 for the OBGYN that she gave you ? And one for a colonoscopy * Telephone Encounter - Braydon Mendoza DO - 10/04/2023 4:43 PM EDT I can make a referral to Dr. Leon valdez for the colonoscopy in [place] if she agrees. I did send in a referral to [facility] through [facility] but it was not covered. She gave me a urologist name-Dr. Osman-who was in her plan but I do not know what happened there. Can she check her plan to see what [facility] is covered? * Telephone Encounter - Imani Sherwood CMA - 10/04/2023 4:43 PM EDT Called pt read your note , she agrees to dr nielsen for the colonoscopy and will call the ob/gym to see if she needs a referral , if so she will call us back with the information * Telephone Encounter - Braydon Mendoza DO - 10/04/2023 4:43 PM EDT Order for colonoscopy with Dr. Nielsen put in. Please set * Telephone Encounter - Kasie Cordon CMA - 10/04/2023 4:43 PM EDT It is set for 11/09 documented in this encounter Plan of Treatment Upcoming Encounters Date Type Department Care Team (Late st Contact Info) Description 05/19/2025 2:00 PM EST Office Visit [facility]ne[facility] [address] [place] [phone] Essence Nunez MD [address] [place], [place] [phone] 10/02/2025 4:00 PM EDT Office Visit [facility] Internal Medicine - Family Medicine [address] [place] [phone] documented as of this encounter Goals Goal [...] documented as of this encounter Care Teams Yard Assistant Relationship Specialty Start Date End Date Braydon Mendoza DO [address], [facility] [place] [address] PCP - General Family Medicine 06/09/17 documented as of this encounter
--- OUTSIDE RECORDS SUMMARY | 2025-02-03 07:56 | XMS_ITS | Encounter Summary ---
Author Organization [facility] tem Address [id number] [address] [place] [address] Care Team Providers Care Digital Imaging Technician Name Role Phone Braydon Mendoza Primary Care Provider + [phone] Encounter Details Date Type Department Care Team (Late st Contact Info) Description 01/17/2022 Orders Only [facility] - Pre Admit [address] [place] [address] Abner Lopez MD [address] [place] [address] Pre-op testing; Contact with and (suspected) exposure to covid-19 Social History Tobacco Use Types Packs/Day Years [...] have Coronavirus / COVID-19? No / Unsure 01/19/2022 6:11 AM EDT documented as of this encounter Functional Status documented as of this encounter Plan of Treatment Upcoming Encounters Date Type Department Care Team (Late st Contact Info) Description 05/19/2025 2:00 PM EST Office Visit [facility]etric[facility]necology [address] [place] [phone] Essence Nunez MD [address] [place] [address] 10/02/2025 4:00 PM EDT Office Visit [facility] Internal Medicine - Family Medicine [address] [place] [phone] documented as of this encounter Goals Goal Patient Goal Type Associated Problems Recent Progress Patient-Stated? Author home with [facility] General Yes Diana Pena LSW Note: Evaluation of progress towards goal: Safe dc return home with otpt therapy documented as of this encounter Procedures Procedure Name Priority Date/Time Associated Diagnosis Comments SARS COV 2 BY NAAT/MOLECULAR Routine 01/17/2022 2:40 PM EDT SARS COV 2 (COVID-19) STAT 01/17/2022 2:40 PM EDT Pre-op testing Contact with and (suspected) exposure to covid-19 documented in this encounter Results * SARS CoV 2 by NAAT/Molecular (01/17/2022 2:40 PM EDT) First Test? NO 01/17/2022 10:30 PM EDT [facility] Employed in Healthcare? NO 01/17/2022 10:30 PM EDT [facility] Symptoms Defined by CDC? NO 01/17/2022 10:30 PM EDT [facility] Symptom Onset? U^UNKNOWN 01/17/2022 10:30 PM EDT [facility] Hospitalized for Covid? UNKNOWN 01/17/2022 10:30 PM EDT [facility] ICU for Covid? UNKNOWN 01/17/2022 10:30 PM EDT [facility] Congregate Setting? NO 01/17/2022 10:30 PM EDT [facility] ? NO 01/17/2022 10:30 PM EDT [facility] SARS Specimen Type SWAB 2021 10:21 PM EDT [facility] COVID-19 Not Detected Not Detected^No t Detected 01/18/2022 4:18 AM EDT [facility] Comment: NOTE The Aptima SARS-CoV-2 assay is a Pearl Hand Mediated Amplification (TMA) test, a type of Nucleic Acid Amplification (NAAT) test, intended for the qualitative detection of RNA from the SARS-CoV-2 from individuals meeting COVID-19 clinical and/or epidemiological criteria. The Aptima SARS-CoV-2 assay is intended for use by qualified and trained clinical laboratory personnel specifically instructed and trained in the operation of the [place] system and in vitro diagnostic procedures. The Aptima SARS-CoV-2 assay is only for use under the Food and Drug Administration's Emergency Use Authorization. Results are for the identification of SARS-CoV-2 RNA generally detectable in upper respiratory samples during the acute phase of infection. Detection of SARS-CoV-2 may be affected by sample collection methods, presence of symptoms and/or stage of infection. Positive results are indicative of the presence of SARS-CoV-2 RNA; clinical correlation with patient history and other diagnostic information is necessary to determine patient infection status. Negative results do not preclude SARS-CoV-2 infection and should not be used as the sole basis for patient management decisions. Negative results must be combined with clinical observations, patient history and epidemiological information. An Invalid result may occur with specimen-associated inhibition unable to be resolved with specimen repeat. Fact Sheet for Healthcare Providers: https://www.fda.gov/media/915582/download Fact Sheet for Patients: https://www.fda.gov/media/357447/download Nasopharyngeal structure / Unknown 01/17/2022 2:40 PM EDT 01/17/2022 3:30 PM EDT Abner Lopez MD MICROBIOLOGY - GENERAL LAURA CELESTIN Final Result [facility] [address], [address] [place] [address] * SARS COV 2 (COVID-19)[Clinic Collect] (01/17/2022 2:40 PM EDT) Specimen Naso Pharynx 01/17/2022 10:30 PM EDT [facility] Sent to Testing to be performed at [facility]. 01/17/2022 10:30 PM EDT [facility] COVID-19 [facility] Report to Follow. 01/17/2022 10:30 PM EDT [facility] Nasopharyngeal structure / Unknown 01/17/2022 2:40 PM EDT 01/17/2022 3:30 PM EDT us Abner Lopez MD MICROBIOLOGY - GENERAL ORDERA BLES Final Result [facility] documented in this encounter Visit Diagnoses Diagnosis Pre-op testing Unspecified pre-operative examination Contact with and (suspected) exposure to covid-19 documented in this encounter Additional Health Concerns Assessment Noted Time A Body Mass Index follow-up plan has been documented for the patient 06/27/2016 8:46 PM EST documented as of this encounter Care Teams Digital Imaging Technician Relationship Specialty Start Date End Date Braydon Mendoza DO [address] [place] [address] PCP - General Family Medicine 06/09/17 documented as of this encounter
--- OUTSIDE RECORDS SUMMARY | 2025-02-03 07:56 | XMS_ITS | Encounter Summary ---
Author Organization [facility] Address [id number] [address] [place] [address] Care Team Providers Care Down Filler Name Role Phone JavierBraydon ruiz Primary Care Provider + [phone] Reason for Visit * Reason Onset Date Comments Med Refill 02/03/2022 Encounter Details Date Type Department Care Team (Late st Contact Info) Description 02/03/2022 [facility] Medicine [address] [place] [address] Mariela Agosto CMA Social History Tobacco Use [...] AM EDT documented as of this encounter Plan of Treatment Upcoming Encounters Date Type Department Care Team (Late st Contact Info) Description 05/19/2025 2:00 PM EST Office Visit [facility] Obstetrics/Gynecology [address] [place] [phone] Essence Nunez MD [address] [place], [place] [phone] 10/02/2025 4:00 PM EDT Office Visit [facility] Internal Medicine - Family Medicine [address] [place] [phone] documented as of this encounter Goals Goal Patient Goal Type Associated Problems Recent Progress Patient-Stated? Author home with [facility] Diana Dangelo LSW Note: Evaluation of progress towards goal: Safe dc return home with otpt therapy documented as of this encounter Visit Diagnoses Not on filedocumented in this encounter Additional Health Concerns Assessment Noted Time A Body Mass Index follow-up plan has been documented for the patient 06/27/2016 8:46 PM EST documented as of this encounter Care Teams Down Filler Relationship Specialty Start Date End Date Braydon Mendoza DO [address], [place] [address] PCP - General Family Medicine 06/09/17 documented as of this encounter
[2025-02-03 08:08] LABS: Hematocrit 38.4 % (36.0-48.0); Hemoglobin 12.6 g/dL (12.0-16.0); Immature Granulocytes Abs Auto 0.00 10^3/uL (0.00-0.03); Immature Granulocytes Pct Auto 0.0 % (0.0-0.5); Lymphocytes Absolute Auto 1.5 10^3/uL (1.2-3.8); Mean Corpuscular HGB Conc 32.8 g/dL (29.9-35.2); Mean Corpuscular Hemoglobin 29.3 pg (26.7-34.0); Mean Corpuscular Volume 89.3 fL (81.0-99.0); Platelet Count 190 10^3/uL (150-450); Red Blood Count 4.30 10^6/uL (4.20-5.40); White Blood Count 4.6 10^3/uL (4.0-11.0)
--- NOTE | 2025-02-03 08:12 | ECG_ITS ---
[facility] Test Date: 2025-02-03 Pat Name: BRIGHT BENITEZ Department: Room: - Gender: Female Flight Instructor: : 1945 Requested By: [id number] Order Number: [id number] Reading MD: BLUE MIRANDA Measurements Intervals [place] Rate: 51 P: 69 AL: 215 QRS: 66 QRSD: 84 T: 75 QT: 445 QTc: 413 Interpretive Statements SINUS BRADYCARDIA WITH FIRST DEGREE AV BLOCK No previous ECG available for comparison Electronically Signed On 02-03-2025 15:23:32 EDT by BLUE MIRANDA
[2025-02-03 08:39] LABS: Anion Gap 11.5; Blood Urea Nitrogen 19.0 mg/dL (7.0-18.0); Calcium 9.2 mg/dL (8.5-10.1); Carbon Dioxide 30.6 mmol/L (21.0-32.0); Chloride 103 mmol/L (98-107); Estimated GFR (African America >60 (>=60 mL/min/1.73m^2); Estimated GFR (Non-African Ame 51 (>=60 mL/min/1.73m^2); Glucose 114 mg/dL (74-106); Potassium 4.1 mmol/L (3.5-5.1); Sodium 141 mmol/L (136-145)
== END 2025-02-03 07:53 | disposition home or self-care (01) ==
LOC: CARD 07:53
PROVIDERS: PCP Family Medicine; Visit Provider Orthopaedic Surgery
DX: M17.12 Unilateral primary osteoarthritis, left knee (principal); S83.242A Other tear of medial meniscus, current injury, left knee, initial encounter; S83.8X2A Sprain of other specified parts of left knee, initial encounter; R00.1 Bradycardia, unspecified
CPT/HCPCS: 36415; 80048; 85025; 93005

== ENCOUNTER 2025-02-13 11:28 | Outpatient (OUT) | payer OTHER, SELFPAY ==
--- NOTE | 2025-02-13 11:35 | XR_ITS ---
The [address] [address] Patient Name: BRIGHT BENITEZ MRN: [id number] date: 1945 Sex: F Assigned Patient Location: [facility] Current Patient Location: [facility] Accession/Order Number: [id number] Exam Date: 02/13/2025 12:00 Report Date: 02/13/2025 14:51 At the request of: ELODIA BRUNSON MD Procedure: XR chest 2V Chest 2 views CLINICAL HISTORY: Injury To Left Knee COMPARISON: None FINDINGS: Heart normal in size. Lungs are clear. No free air. XR/XR chest 2V IMPRESSION: NO ACUTE CARDIOPULMONARY ABNORMALITY. Impression dictated by: Biju Contreras Jr., DNikONik 02/13/2025 2:51 PM Dictation Location: [place] [address] Electronically authenticated by: [id number] Y Date: 02/13/2025 14:51
== END 2025-02-13 11:29 | disposition home or self-care (01) ==
LOC: RAD 11:31
PROVIDERS: PCP Family Medicine; Visit Provider Orthopaedic Surgery
DX: S83.242A Other tear of medial meniscus, current injury, left knee, initial encounter (principal)
CPT/HCPCS: 71046